=== PATIENT | male | born 1965 | race Caucasian/White ===

== ENCOUNTER → 2017-10-20 16:07 | Outpatient (CLI) | payer BC, SELFPAY | PROVIDERS: PCP Internal Medicine; Visit Provider Internal Medicine | DX: R07.9 Chest pain, unspecified (principal) | CPT/HCPCS: 93005 ==

== ENCOUNTER → 2017-10-29 07:12 | Outpatient (CLI) | payer BC, SELFPAY ==
--- NOTE | 2017-10-29 07:14 | XR_ITS ---
XR chest 2V HISTORY: ITS.REASON: CHEST PAIN ORDERING PHYSICIAN: Jose Mirza PATIENT AGE: 51 years COMPARISON: None FINDINGS: Unremarkable cardiovascular structures. No lobar consolidation or collapse. There is slight increased markings in the right perihilar region probably related to summation artifact from the ribs and vessels which may be confirmed with follow-up. No acute bony anomalies. Minimal fibrotic changes in the apices noted IMPRESSION: No acute finding. Please see above for detail
--- NOTE | 2017-10-29 07:30 | NM_ITS ---
History and Indications: Chest pain, hypertension Procedure: Patient exercised on Chapin protocol 7 minutes and 45 seconds, resting heart rate was 55 bpm resting blood pressure 167/88, with exercise maximum heart rate achieved was 1 52 bpm which is greater than 85% of the maximum predicted heart rate and a blood pressure was 190/90. Test was started due to shortness of breath and fatigue. Patient has good exercise capacity achieved 10.1mets of workload on treadmill, the blood pressure response to exercise was adequate. Electrocardiogram: Resting electrocardiogram showed sinus rhythm nonspecific ST-T changes, with exercise there is 1.[address] segment depression from the baseline EKG. The EKG portion of the exercise Myoview is positive for ischemia. Cardiac stress and resting SPECT images: Cardiac stress and rest SPECT images were obtained using technetium 99 Myoview 31.7 mCi at stress and 10.8 mCi at rest. Gated SPECT further analysis of segmental wall motion and calculation of the ejection fraction also done. Cardiac stress and rest images show severely reduced tracer activity in the inferior and lateral wall, which improves on the resting images suggestive of reversible ischemia, computer derived ejection fraction is 60% with no obvious regional wall motion abnormality, right ventricle is normal size and contractility. Conclusion: 1. The EKG portion of the exercise Myoview is positive for ischemia, patient has good exercise capacity achieved 10.1mets of workload on treadmill, the blood pressure response to exercise was adequate, test was started due to shortness of breath. 2. Scintigraphic evidence of reversible ischemia involving the lateral and inferior wall, computer derived ejection fraction is 60% with no obvious regional wall motion abnormality, right ventricle is normal size and contractility. 3. Abnormal exercise Myoview study.
--- NOTE | 2017-10-29 07:30 | US_ITS ---
US abdomen complete HISTORY: Abdominal pain and cramping after eating ITS.REASON: ABD PAIN ORDERING PHYSICIAN: Jose Mirza PATIENT AGE: 51 years COMPARISON: None FINDINGS: PANCREAS:Unremarkable. No obvious mass or abnormal fluid collection. No ductal dilatation LIVER:No focal liver lesions demonstrated. Homogeneous echogenicity. No intrahepatic biliary ductal dilatation evident RIGHT KIDNEY:A right parapelvic renal cyst measuring 4.5 x 3 cm. No hydronephrosis. LEFT KIDNEY:Unremarkable. No hydronephrosis. Normal size and echogenicity. GALLBLADDER:Multiple stones are present within the gallbladder. The gallbladder is thickened measuring up to 8 mm. Common bile duct is normal at 4 mm. No pericholecystic fluid. AORTA:No evidence of aneurysmal dilatation. SPLEEN:Unremarkable. Normal size and echogenicity ASCITES:None demonstrated. IMPRESSION: 1. Cholelithiasis with thickened gallbladder wall 2. Right parapelvic renal cyst
[2017-10-29 09:08] LABS: Basophils # 0.1 K/mm3 (0-0.2); Basophils % 0.5 % (0.1-2.0); Eosinophils # 0.3 K/mm3 (0.0-0.4); Eosinophils % 3.4 % (0.1-12.0); Hematocrit 45.1 % (42.0-52.0); Hemoglobin 14.6 g/dL (14.1-18.0); Lymphocytes # 2.4 K/mm3 (0.7-4.5); Lymphocytes % 23.3 K/mm3 (10-50); Mean Corpuscular HGB Conc 32.4 g/dL (31.8-35.4); Mean Corpuscular Hemoglobin 30.8 pg (27.0-31.2); Mean Corpuscular Volume 95.2 fl (80-94); Mean Platelet Volume 10.1 fl (7.4-10.4); Monocytes # 0.7 K/mm3 (0.1-1.0); Monocytes % 6.7 % (1.7-9.3); Neutrophils # 6.8 K/mm3 (1.8-7.8); Neutrophils % 66.1 % (37.0-80.0); Platelet Count 207 K/mm3 (142-424); Red Blood Count 4.73 M/mm3 (4.60-6.20); Red Cell Distribution Width 12.4 % (11.5-17.5); White Blood Count 10.2 K/mm3 (4.8-10.8)
--- NOTE | 2017-10-29 09:17 | HMH.ITSHM ---
lisinopril propanalol
[2017-10-29 09:19] LABS: Alanine Aminotransferase 31 U/L (12-78); Albumin/Globulin Ratio 1.2 (1.1-1.8); Alkaline Phosphatase 105 U/L (46-116); Amylase 50 U/L (25-125); Anion Gap 9.7 mEq/L (5-15); Aspartate Amino Transferase 14 U/L (15-37); Bilirubin,Total 0.5 mg/dL (0.2-1.0); Blood Urea Nitrogen 14 mg/dL (7-18); Calcium 9.3 mg/dL (8.5-10.1); Carbon Dioxide 29 mmol/L (21.0-32.0); Chloride 107 mmol/L (98-107); Creatinine,Serum 0.83 mg/dL (0.70-1.30); Estimated Glomerular Filt Rate 97 ml/min (>60); GFR (African American) 117 ML/MIN (>60); Globulin 3.4 gm/dl (1.3-3.2); Glucose 112 mg/dL (74-106); Potassium 4.7 mmoL/L (3.5-5.1); Sodium 141 mmol/L (136-145); Total Protein,Serum 7.4 gm/dL (6.4-8.2)
== END ==
PROVIDERS: PCP Internal Medicine; Visit Provider Internal Medicine
DX: R07.9 Chest pain, unspecified (principal)
CPT/HCPCS: 71046; 76700; 78452; 80053; 82150; 85025; 93017; A9502

== ENCOUNTER → 2017-12-15 16:26 | Outpatient (REF) | payer BC, SELFPAY ==
[2017-12-15 19:24] LABS: Alanine Aminotransferase 29 U/L (12-78); Chol/HDL Ratio 3.3 (1-3.5); Cholesterol 134 mg/dL (140-200); HDL Cholesterol 41 mg/dL (27-67); LDL Cholesterol 64 mg/dL (0-130); Triglycerides 147 mg/dL (30-200); VLDL Cholesterol 29 mg/dL (0-40)
== END ==
LOC: LAB 16:26
PROVIDERS: Visit Provider Internal Medicine
DX: I25.10 Atherosclerotic heart disease of native coronary artery without angina pectoris (principal); I10 Essential (primary) hypertension; E78.5 Hyperlipidemia, unspecified; K80.50 Calculus of bile duct without cholangitis or cholecystitis without obstruction; Z95.9 Presence of cardiac and vascular implant and graft, unspecified
CPT/HCPCS: 80061; 84460

== ENCOUNTER → 2022-01-21 19:31 | Outpatient (CLI) | payer BC, SELFPAY ==
[2022-01-21 20:55] LABS: Hemoglobin A1C 7.4 % (4.0-6.0)
[2022-01-21 20:56] LABS: Alanine Aminotransferase 36 U/L (12-78); Albumin Level 4.7 g/dl (3.5-5.0); Albumin/Globulin Ratio 1.7 (1.1-1.8); Alkaline Phosphatase 125 U/L (38-126); Anion Gap 14.4 mEq/L (5-15); Aspartate Amino Transferase 31 U/L (17-59); Bilirubin,Total 1.2 mg/dl (0.2-1.3); Blood Urea Nitrogen 13 mg/dl (9-20); Calcium 9.3 mg/dl (8.4-10.2); Carbon Dioxide 25 mmol/L (22.0-30.0); Chloride 103 mmol/L (98-107); Chol/HDL Ratio 3.5 (1-3.5); Cholesterol 107 mg/dl (140-200); Estimated Glomerular Filt Rate 116 ml/min (>60); GFR (African American) 140 ML/MIN (>60); Globulin 2.8 g/dL (1.3-3.2); Glucose 82 mg/dl (74-100); HDL Cholesterol 31 mg/dl (40-60); Potassium 4.4 mmoL/L (3.5-5.1); Sodium 138 mmol/L (136-145); Total Protein,Serum 7.5 g/dl (6.3-8.2); Triglycerides 166 mg/dl (30-150); VLDL Cholesterol 33 mg/dL (0-40)
[2022-01-21 21:26] LABS: Prostate Specific Ag Screen 2.5 ng/ml (0.0-4.0)
[2022-01-23 14:14] LABS: Direct LDL Cholesterol 41 mg/dL (100-129)
== END ==
PROVIDERS: PCP Internal Medicine; Visit Provider Internal Medicine
DX: E11.59 Type 2 diabetes mellitus with other circulatory complications (principal); E78.5 Hyperlipidemia, unspecified; I25.10 Atherosclerotic heart disease of native coronary artery without angina pectoris; Z12.5 Encounter for screening for malignant neoplasm of prostate
CPT/HCPCS: 80053; 80061; 83036; G0103

== ENCOUNTER → 2022-08-21 16:47 | Outpatient (CLI) | payer BC, SELFPAY ==
[2022-08-21 17:15] LABS: Basophils % 0.3 % (0.1-2.0); Eosinophils # 0.3 K/mm3 (0.0-0.4); Eosinophils % 2.7 % (0.1-12.0); Hematocrit 45.5 % (42.0-52.0); Hemoglobin 14.9 g/dL (14.1-18.0); Lymphocytes # 2.9 K/mm3 (0.7-4.5); Lymphocytes % 29.3 % (10-50); Mean Corpuscular HGB Conc 32.7 g/dL (31.8-35.4); Mean Corpuscular Hemoglobin 30.8 pg (27.0-31.2); Mean Corpuscular Volume 94.1 fl (80-94); Mean Platelet Volume 10.6 fl (7.4-10.4); Monocytes # 0.6 K/mm3 (0.1-1.0); Monocytes % 5.7 % (1.7-9.3); Neutrophils # 6.2 K/mm3 (1.8-7.8); Neutrophils % 61.9 % (37.0-80.0); Platelet Count 237 K/mm3 (142-424); Red Blood Count 4.84 M/mm3 (4.60-6.20); Red Cell Distribution Width 12.9 % (11.5-17.5)
[2022-08-21 17:26] LABS: Chloride 105 mmol/L (98-107)
[2022-08-21 17:27] LABS: Potassium 4.5 mmoL/L (3.5-5.1); Sodium 135 mmol/L (136-145)
[2022-08-21 17:29] LABS: Alanine Aminotransferase 57 U/L (12-78); Alkaline Phosphatase 133 U/L (38-126); Aspartate Amino Transferase 40 U/L (17-59); Bilirubin,Total 0.8 mg/dl (0.2-1.3); Blood Urea Nitrogen 19 mg/dl (9-20); Estimated Glomerular Filt Rate 116 ml/min (>60); GFR (African American) 140 ML/MIN (>60)
[2022-08-21 17:30] LABS: Albumin Level 4.5 g/dl (3.5-5.0); Albumin/Globulin Ratio 1.7 (1.1-1.8); Anion Gap 16.5 mEq/L (5-15); Calcium 9.2 mg/dl (8.4-10.2); Carbon Dioxide 18 mmol/L (22.0-30.0); Globulin 2.7 g/dL (1.3-3.2); Glucose 150 mg/dl (74-100); Total Protein,Serum 7.2 g/dl (6.3-8.2)
[2022-08-21 18:40] LABS: Hemoglobin A1C 13.6 % (4.0-6.0)
[2022-08-21 19:08] LABS: Creatinine,Urine Random 190 mg/dL (Not Estab.)
[2022-08-21 19:12] LABS: Microalbumin/Creatinine Ratio 8.7
== END ==
PROVIDERS: PCP Internal Medicine; Visit Provider Internal Medicine
DX: I25.10 Atherosclerotic heart disease of native coronary artery without angina pectoris (principal); I10 Essential (primary) hypertension; E11.59 Type 2 diabetes mellitus with other circulatory complications; E78.5 Hyperlipidemia, unspecified; G43.009 Migraine without aura, not intractable, without status migrainosus; Z95.9 Presence of cardiac and vascular implant and graft, unspecified
CPT/HCPCS: 80053; 82043; 82570; 83036; 85025

== ENCOUNTER → 2023-04-30 17:56 | Outpatient (CLI) | payer BC, SELFPAY ==
[2023-04-30 19:31] LABS: Alanine Aminotransferase 31 U/L (12-78); Albumin Level 4.5 g/dl (3.5-5.0); Albumin/Globulin Ratio 1.5 (1.1-1.8); Alkaline Phosphatase 106 U/L (38-126); Anion Gap 11.8 mEq/L (5-15); Aspartate Amino Transferase 31 U/L (17-59); Bilirubin,Total 0.8 mg/dl (0.2-1.3); Blood Urea Nitrogen 14 mg/dl (9-20); Calcium 8.7 mg/dl (8.4-10.2); Carbon Dioxide 25 mmol/L (22.0-30.0); Chloride 102 mmol/L (98-107); Chol/HDL Ratio 4.1 (1-3.5); Cholesterol 106 mg/dl (140-200); Estimated Glomerular Filt Rate 115 ml/min (>60); GFR (African American) 140 ML/MIN (>60); Glucose 123 mg/dl (74-100); HDL Cholesterol 26 mg/dl (40-60); Potassium 4.8 mmoL/L (3.5-5.1); Sodium 134 mmol/L (136-145); Total Protein,Serum 7.5 g/dl (6.3-8.2); Triglycerides 148 mg/dl (30-150); VLDL Cholesterol 30 mg/dL (0-40)
[2023-04-30 19:41] LABS: Direct LDL Cholesterol 58.28 mg/dL (100-129)
[2023-04-30 20:01] LABS: Prostate Specific Ag Screen 2.3 ng/ml (0.0-4.0)
[2023-04-30 20:53] LABS: Hemoglobin A1C 7.7 % (4.0-6.0)
== END ==
PROVIDERS: PCP Internal Medicine; Visit Provider Internal Medicine
DX: E11.59 Type 2 diabetes mellitus with other circulatory complications (principal); I25.10 Atherosclerotic heart disease of native coronary artery without angina pectoris; I10 Essential (primary) hypertension; E78.5 Hyperlipidemia, unspecified; N40.1 Benign prostatic hyperplasia with lower urinary tract symptoms; Z12.5 Encounter for screening for malignant neoplasm of prostate
CPT/HCPCS: 80053; 80061; 83036; G0103

== ENCOUNTER 2023-11-08 15:15 | Outpatient (CLI) | payer BC, SELFPAY ==
[2023-11-08 18:59] LABS: Hemoglobin A1C 6.6 % (4.0-6.0)
== END 2023-11-08 23:59 | disposition home or self-care (01) ==
LOC: LAB.DROPOF 11-09 09:06
PROVIDERS: PCP Internal Medicine; Visit Provider Internal Medicine
DX: E11.59 Type 2 diabetes mellitus with other circulatory complications (principal); Z79.84 Long term (current) use of oral hypoglycemic drugs; I25.10 Atherosclerotic heart disease of native coronary artery without angina pectoris; E78.5 Hyperlipidemia, unspecified; G43.909 Migraine, unspecified, not intractable, without status migrainosus
CPT/HCPCS: 83036

== ENCOUNTER 2024-02-08 14:21 | Outpatient (CLI) | payer BC, SELFPAY ==
[2024-02-08 14:22] LABS: Basophils # 0.1 K/mm3 (0-0.2); Basophils % 0.6 % (0.1-2.0); Eosinophils # 0.3 K/mm3 (0.0-0.4); Hematocrit 49.6 % (42.0-52.0); Lymphocytes # 2.5 K/mm3 (0.7-4.5); Lymphocytes % 23.4 % (10-50); Mean Corpuscular HGB Conc 32.2 g/dL (31.8-35.4); Mean Corpuscular Hemoglobin 31.5 pg (27.0-31.2); Mean Corpuscular Volume 97.6 fl (80-94); Mean Platelet Volume 9.8 fl (7.4-10.4); Monocytes # 0.7 K/mm3 (0.1-1.0); Monocytes % 6.7 % (1.7-9.3); Neutrophils % 66.4 % (37.0-80.0); Platelet Count 248 K/mm3 (142-424); Red Blood Count 5.08 M/mm3 (4.60-6.20); Red Cell Distribution Width 13.1 % (11.5-17.5); White Blood Count 10.6 K/mm3 (4.8-10.8)
[2024-02-08 14:31] LABS: Creatinine,Urine Random 118 mg/dL (Not Estab.)
[2024-02-08 14:35] LABS: Microalbumin/Creatinine Ratio 21.9
[2024-02-08 15:02] LABS: Alanine Aminotransferase 36 U/L (12-78); Albumin Level 4.7 g/dl (3.5-5.0); Albumin/Globulin Ratio 1.7 (1.1-1.8); Alkaline Phosphatase 112 U/L (38-126); Anion Gap 12.2 mEq/L (5-15); Aspartate Amino Transferase 32 U/L (17-59); Bilirubin,Total 1.2 mg/dl (0.2-1.3); Blood Urea Nitrogen 18 mg/dl (9-20); Calcium 9.8 mg/dl (8.4-10.2); Carbon Dioxide 21 mmol/L (22.0-30.0); Chloride 108 mmol/L (98-107); Chol/HDL Ratio 2.9 (1-3.5); Cholesterol 129 mg/dl (140-200); Estimated Glomerular Filt Rate 115 ml/min (>60); GFR (African American) 139 ML/MIN (>60); Globulin 2.8 g/dL (1.3-3.2); Glucose 113 mg/dl (74-100); HDL Cholesterol 44 mg/dl (40-60); Potassium 4.2 mmoL/L (3.5-5.1); Sodium 137 mmol/L (136-145); Total Protein,Serum 7.5 g/dl (6.3-8.2); Triglycerides 154 mg/dl (30-150); VLDL Cholesterol 31 mg/dL (0-40)
[2024-02-08 15:13] LABS: Direct LDL Cholesterol 50.19 mg/dL (100-129)
[2024-02-08 15:43] LABS: Hemoglobin A1C 6.9 % (4.0-6.0)
== END 2024-02-08 23:59 | disposition home or self-care (01) ==
LOC: LAB.DROPOF 14:22
PROVIDERS: PCP Internal Medicine; Visit Provider Internal Medicine
DX: E78.5 Hyperlipidemia, unspecified (principal); E11.59 Type 2 diabetes mellitus with other circulatory complications; I25.10 Atherosclerotic heart disease of native coronary artery without angina pectoris; Z79.84 Long term (current) use of oral hypoglycemic drugs
CPT/HCPCS: 80053; 80061; 82043; 82570; 83036; 85025

== ENCOUNTER 2024-07-18 09:33 | Outpatient (CLI) | payer BC, SELFPAY ==
[2024-07-18 19:15] LABS: Hemoglobin A1C 7.2 % (4.0-6.0)
[2024-07-18 19:35] LABS: Alanine Aminotransferase 53 U/L (12-78); Albumin/Globulin Ratio 2.4 (1.1-1.8); Alkaline Phosphatase 109 U/L (38-126); Anion Gap 16.4 mEq/L (5-15); Aspartate Amino Transferase 38 U/L (17-59); Bilirubin,Total 1.1 mg/dl (0.2-1.3); Blood Urea Nitrogen 18 mg/dl (9-20); Calcium 9.5 mg/dl (8.4-10.2); Carbon Dioxide 23 mmol/L (22.0-30.0); Chloride 103 mmol/L (98-107); Chol/HDL Ratio 3.4 (1-3.5); Cholesterol 124 mg/dl (140-200); Estimated Glomerular Filt Rate 115 ml/min (>60); GFR (African American) 139 ML/MIN (>60); Globulin 2.1 g/dL (1.3-3.2); Glucose 126 mg/dl (74-100); HDL Cholesterol 36 mg/dl (40-60); Potassium 4.4 mmoL/L (3.5-5.1); Sodium 138 mmol/L (136-145); Total Protein,Serum 7.1 g/dl (6.3-8.2); Triglycerides 178 mg/dl (30-150); VLDL Cholesterol 36 mg/dL (0-40)
[2024-07-18 19:46] LABS: Direct LDL Cholesterol 53.66 mg/dL (100-129)
[2024-07-18 20:05] LABS: Prostate Specific Ag Screen 2.1 ng/ml (0.0-4.0)
== END 2024-07-18 23:59 | disposition home or self-care (01) ==
LOC: LAB.DROPOF 07-19 09:33
PROVIDERS: PCP Internal Medicine; Visit Provider Internal Medicine
DX: E78.5 Hyperlipidemia, unspecified (principal); E11.59 Type 2 diabetes mellitus with other circulatory complications; Z79.84 Long term (current) use of oral hypoglycemic drugs; I25.10 Atherosclerotic heart disease of native coronary artery without angina pectoris; Z12.5 Encounter for screening for malignant neoplasm of prostate
CPT/HCPCS: 80053; 80061; 83036; G0103

== ENCOUNTER 2025-01-17 11:05 | Outpatient (CLI) | payer BC, SELFPAY ==
[2025-01-17 16:27] LABS: Hematocrit 45.3 % (42.0-52.0); Hemoglobin 15.0 g/dL (14.1-18.0); Immature Granulocytes % 0.3 %; Mean Corpuscular HGB Conc 33.1 g/dL (31.8-35.4); Mean Corpuscular Hemoglobin 31.6 pg (27.0-31.2); Mean Corpuscular Volume 95.6 fl (80-94); Nucleated Red Blood Cells % 0 %; Platelet Count 220 K/mm3 (142-424); Red Blood Count 4.74 M/mm3 (4.60-6.20); Red Cell Distribution Width-SD 44.0 fL; White Blood Count 8.7 K/mm3 (4.8-10.8)
[2025-01-17 16:42] LABS: Alanine Aminotransferase 30 U/L (12-78); Albumin Level 5.0 g/dl (3.5-5.0); Albumin/Globulin Ratio 1.9 (1.1-1.8); Alkaline Phosphatase 118 U/L (38-126); Anion Gap 17.1 mEq/L (5-15); Aspartate Amino Transferase 30 U/L (17-59); Bilirubin,Total 1.5 mg/dl (0.2-1.3); Blood Urea Nitrogen 20 mg/dl (9-20); Calcium 9.8 mg/dl (8.4-10.2); Carbon Dioxide 24 mmol/L (22.0-30.0); Chloride 101 mmol/L (98-107); Cholesterol 102 mg/dl (140-200); Creatinine,Serum 0.70 mg/dl (0.66-1.25); Estimated Glomerular Filt Rate 115 ml/min (>60); GFR (African American) 139 ML/MIN (>60); Globulin 2.7 g/dL (1.3-3.2); Glucose 88 mg/dl (74-100); HDL Cholesterol 29 mg/dl (40-60); Potassium 5.1 mmoL/L (3.5-5.1); Sodium 137 mmol/L (136-145); Total Protein,Serum 7.7 g/dl (6.3-8.2); Triglycerides 145 mg/dl (30-150)
[2025-01-17 23:30] LABS: Hemoglobin A1C 7.0 % (4.0-6.0)
--- OUTSIDE RECORDS SUMMARY | 2025-01-19 09:49 | XMS_ITS | Clinical Summary ---
Author Organization [facility] Address [address] [place] [id number] Phone [email or web address] Providers Care Surgery Teacher Name Role Phone Unavailable Primary Care Provider Unavailabl e Allergies Active Allergy Reactions Criticality Noted Date Comments Cat Dander 05/30/2018 Pollen Extract 05/30/2018 Medications aspirin 81 MG tablet Take 81 mg by mouth daily. Active lisinopril (PRINIVIL,ZESTRI L) 10 MG tablet Take 10 mg by mouth daily. Active metFORMIN (GLUCOPHAGE) 1000 MG tablet 01/15/2021 Acti ve propranolol LA (INDERAL LA) 80 MG 24 hr capsule 01/15/2021 Ac tive topiramate (TOPAMAX) 50 MG tablet 01/15/2021 Active atorvastatin (LIPITOR) 80 MG tablet 02/13/2021 Active Active Problems Problem Noted Date Diagnosed Date Encounter for fitness for duty examination 05/30 Symptomatic cholelithiasis 05/03/2018 Abnormal stress test 11/10/2017 Overview (05/30/2018): Overview: Added automatically from request for surgery [id number] Abnormal stress test 11/10/2017 Overview (04/01/2021): Added automatically from request for surgery [id number] Other examination of ears and hearing 12/19/2007 Overview (10/13/2017): Social History Tobacco Use Types Packs/Day Years Used Date Smoking Tobacco: Former Smokeless Tobacco: Never Intimate Partner Violence Answer Date R ecorded Insults You Not on file 08/28/2020 Threatens You Not on file 08/28/2020 Screams at You Not on file 08/28/2020 Physically Hurt Not on file 08/28/2020 Intimate Partner Violence Score Not on file 08/28/2020 Stress Answer Date Recorded Stress in your Life Not on file 03/20/2024 Dealing with Stress 3 03/20/2024 Sex and Gender Information Value Date Recorded Sex Assigned at Not on file Legal Sex Male 10:38 AM CDT Gender Identity Not on file Sexual Orientation Not on file Last Filed Vital Signs Vital Sign Reading Time Taken Comments Blood Pressure 120/83 05/30/2018 6:06 PM EST Pulse 62 05/30/2018 6:06 PM EST Temperature 37.2 C (99 F) 06/13/2021 9:49 AM EST Respiratory Rate 16 05/30/2018 6:06 PM EST Oxygen Saturation 99% 05/30/2018 6:06 PM EST Inhaled Oxygen Concentration - - Weight 87.5 kg (193 lb) 11/13/2015 11:27 AM CDT Height 180.3 cm (5' 11 ) 11/13/2015 11:27 AM CDT Body Mass Index 26.92 11/13/2015 11:27 AM CDT Plan of Treatment Health Maintenance Due Date Last Done Comments CT Colonography 1963 Colonoscopy 1963 Colorectal Cancer Screening Combo 1963 DNA Cologuard 1963 Dental Cleaning/Exam 1963 FIT or FOBT Test 1965 HIV Screening 1963 Hepatitis C Screening 1963 Sigmoidoscopy 1963 Annual Preventive Exam 11/21/1981 Hep B Infection Screening - Triple Screen 11/21/1981 Tetanus Diphtheria and Pertu ssis Immunization (1 - Tdap) 11/21/1982 Zoster Immunization (1 of 2) 11/21/2013 Covid-19 Immunization (1 - 2 25 season) 2025 Influenza Immunization (#1) 2025 HIB Immunization Aged Out No longer e ligible based on patient's age to complete this topic HPV Immunization Aged Out No longer e ligible based on patient's age to complete this topic Hepatitis A Immunization Aged Out No longer eligible based on patient's age to complete this topic Hepatitis B Immunization Aged Out No longer eligible based on patient's age to complete this topic Pneumococcal: Ped (0 to 5 Yr s) and At-Risk Member (6 to 64 Yrs) Aged Out No longer e ligible based on patient's age to complete this topic Polio Immunization Aged Out No longer eligible based on patient's age to complete this topic Insurance [address] [address] [address] [address] [facility] [id number] [place] [address]
--- OUTSIDE RECORDS SUMMARY | 2025-01-19 09:49 | XMS_ITS | Clinical Summary ---
Author Organization [facility] Address [address] [place] [address] Care Team Providers Care Control Room Tender Name Role Phone Jose Mirza MD Primary Care Provider [phone] Allergies No known active allergies Medications propranolol (INDERAL) 80 MG tablet Take 80 mg by mouth Every Night. Active lisinopril (PRINIVIL,ZESTR IL) 10 MG tablet Take 10 mg by mouth Daily. Active atorvastatin (LIPITOR) 40 MG tablet Take 40 mg by mouth Every Night. Active topiramate (TOPAMAX) 25 MG tablet Take 50 mg by mouth 2 (Two) Times a Day. Active clopidogrel (PLAVIX) 75 MG tablet Take 1 tablet by mouth Daily. 30 tablet 11 8 Active Additional Information Patient taking differently:75 mg Oral Daily,Instructed by Dr. Shipley to remain on Plavix, Informant: Medication Bottle, Reported on 05/02/2018 aspirin 81 MG tablet Take 1 tablet by mouth Daily. 30 tablet 11 Active oxyCODONE-aceta minophen (PERCOCET) 5-325 MG per tablet Take 1-2 tablets by mouth Every 4 (Four) Hours As Needed (pain). 37 tablet 8 Active docusate sodium (COLACE) 250 MG capsule Take 1 capsule by mouth 2 (Two) Times a Day. 20 capsule 8 Active Active Problems Problem Noted Date Diagnosed Date Symptomatic cholelithiasis 05/03/2018 Abnormal stress test 11/10/2017 Overview (11/10/2017): Added automatically from request for surgery [id number] Social History Tobacco Use Types Packs/Day Years Used Date Smoking Tobacco: Former Cigarettes 1 25 0 11/14/1992 - 11/14/2017 Smokeless Tobacco: Never Alcohol Use Standard Drinks/Week Comments No 0 (1 standard drink = 0.6 oz pur e alcohol) Abuse Screen Answer Date Recorded Unsafe at Home or Work/School Not on file Feels Threatened by Someone? Not on file 04/2023 Does Anyone Keep You from Co ntacting Others or Doint Things Outside the Home? Not on file 02/25/2023 Physical Sign of Abuse Present Not on file 1 Housing Stability Answer Date Recorded Current Living Arrangements Not on file 02/14 Potentially Unsafe Housing Conditions Not on weston e 02/25/2023 Family and Community Support Answer Daniel e Recorded Help with Day-to-Day Activities Not on file 02/25/2023 Lonely or Isolated Not on file 02/25/2023 Employment Answer Date Recorded Do you want help finding or keeping work or a bebe b? Not on file 02/25/2023 Disabilities Answer Date Recorded Concentrating, Remembering, or Making Decisions Difficulty Not on file 02/25/2023 Doing Errands Independently Difficulty Not on fi le 02/25/2023 Education Answer Date Recorded Help with school or training? Not on file Preferred Language Not on file 02/25/2023 Sex and Gender Information Value Date Recorded Sex Assigned at Not on file Legal Sex Male 1:19 PM EDT Gender Identity Not on file Sexual Orientation Not on file Last Filed Vital Signs Vital Sign Reading Time Taken Comments Blood Pressure 136/78 05/03/2018 1:50 PM EST Pulse 55 05/03/2018 1:50 PM EST Temperature 36.6 C (97.8 F) 05/03/2018 1:50 PM EST Respiratory Rate 18 05/03/2018 1:50 PM EST Oxygen Saturation 94% 05/03/2018 1:50 PM EST Inhaled Oxygen Concentration - - Weight 95.7 kg (211 lb) 05/03/2018 9:35 AM EST Height 177.8 cm (5' 10 ) 05/03/2018 9:35 AM EST Body Mass Index 30.28 05/03/2018 9:35 AM EST Plan of Treatment Health Maintenance Due Date Last Done Comments TDAP/TD VACCINES (1 - Tdap) 11/21/1982 COLOGUARD 11/21/2008 COLON CANCER SCREENING 5 YEAR SIGMOIDOSCOPY 11/21/2008 COLONOSCOPY 11/21/2008 COLORECTAL CANCER SCREENING 11/21/2008 CT COLONOGRAPHY 11/21/2008 FECAL OCCULT BLOOD TEST 11/21/2008 FIT Testing (1 year) 11/21/2008 Pneumococcal Vaccine 50+ (1 of 1 - PCV) 11/21/2013 ZOSTER VACCINE (1 of 2) 11/21/2013 ANNUAL PHYSICAL 05/02/2018 HEPATITIS C SCREENING 05/02/2018 COVID-19 Vaccine (1 - 2023- season) 2024 INFLUENZA VACCINE 02/14/2025 Medical Devices Implanted Type Area Hearing Screen Coordinator Device Identifier Shelf Expiration Date Model / Serial / Lot Stent Xience Hannah Everolimus Dustin [id number] - [id number] Implanted:Qty: 1 on 11/24/2017 by [facility]ira [facility] [id number] / / Stent Xience Hannah Everolimus Dustin [id number] - [id number] Implanted:Qty: 1 on 11/24/2017 by Felipe Lira [facility] [id number] / / Insurance [facility] PPO Care Teams Control Room Tender Relationship Specialty Start Date End Date Jose Mirza MD [address] [facility] [address] [facility] [id number] PCP - General Internal Medicine 11/24/17
== END 2025-01-17 23:59 ==
LOC: LAB.DROPOF 01-19 09:48
PROVIDERS: PCP Internal Medicine; Visit Provider Internal Medicine
DX: I25.10 Atherosclerotic heart disease of native coronary artery without angina pectoris (principal); E78.5 Hyperlipidemia, unspecified; E11.59 Type 2 diabetes mellitus with other circulatory complications
CPT/HCPCS: 80053; 80061; 82043; 82570; 83036; 85025